=== PATIENT | female | born 1970 | race Caucasian/White ===

== ENCOUNTER 2022-06-21 04:25 | Day surgery (SDC) | payer OTHER ==
[2022-06-17 17:06] VITALS: BMI 27.4
[~2022-06-21 04:25] MED LIST: BUPIVACAINE HCL/PF 0.5% (5MG/ML) 10 ML VIAL NR ONE; LIDOCAINE HCL 1%, 10 MG/ML (20ML VIAL) NR ONE
[2022-06-21] MEDS ORDERED: ONDANSETRON 4 MG/2 ML VIAL IVPUSH PRN (08:51)
[2022-06-21] MEDS ORDERED: PROMETHAZINE HCL 25 MG/1 ML VIAL IVPB PRN (08:51)
[2022-06-21] MEDS ORDERED: oxyCODONE HCL 5 MG TABLET PO PRN (08:51)
[2022-06-21] MEDS ORDERED: LACTATED RINGERS SOLUTION 1,000 ML IV SCH (09:00)
[2022-06-21] MEDS ORDERED: LIDOCAINE HCL 1%, 10 MG/ML (10ML VIAL) MDV ONE (09:54)
[2022-06-21] MEDS ORDERED: BUPIVACAINE HCL/PF 0.5% (5MG/ML) 10 ML VIAL ONE (09:55)
[2022-06-21] MEDS ORDERED: MIDAZOLAM HCL 2 MG/2 ML SINGLE DOSE VIAL ONE (11:53)
[2022-06-21] MEDS ORDERED: KETAMINE HCL 500 MG/10 ML VIAL ONE (11:54)
[2022-06-21] MEDS ORDERED: LIDOCAINE HCL 1%, 10 MG/ML (20ML VIAL) NR ONE ×2 (12:15)
[2022-06-21] MEDS ORDERED: BUPIVACAINE HCL/PF 0.5% (5MG/ML) 10 ML VIAL NR ONE (12:15)
[2022-06-21] MEDS ORDERED: ceFAZolin SODIUM 1 GM VIAL IVPB ONE ×2 (12:15)
[2022-06-21] MEDS ORDERED: PROPOFOL 20 ML ONE ×2 (12:27→12:31)
[2022-06-21 14:24] VITALS: BP 113/69; PULSE 56; RESP 20; TEMP 97.1
[2022-06-21] MEDS ORDERED: ACETAMINOPHEN 325 MG TABLET (FP) PO ONE (15:23)
[2022-06-21] MEDS ORDERED: oxyCODONE HCL 5 MG TABLET ONE (15:37)
== END 2022-06-21 16:40 | disposition home or self-care (01) ==
LOC: JASU-SURG 04:25
PROVIDERS: ATTEND Podiatrist Foot & Ankle Surgery
PROC: 0SG Lower Joints, Fusion (ICD-10-PCS; principal; 2022-06-21 11:30)
DX: M19.171 Post-traumatic osteoarthritis, right ankle and foot (principal); M20.41 Other hammer toe(s) (acquired), right foot
CPT/HCPCS: 73630-TC-RT-FY; 76000-TC-FY; 88304-TC; 88311-TC; C1713